=== PATIENT | male | born 1965 | race Caucasian/White ===

== ENCOUNTER → 2017-11-01 | Outpatient (CLI) | payer OTHER ==
--- NOTE | 2017-11-01 15:05 | NM ---
EXAMINATION TYPE: NM hepatobiliary w CCK DATE OF EXAM: 11/01/2017 COMPARISON: NONE HISTORY: Gastroesophageal reflux disease TECHNIQUE: After the intravenous administration of 5 mCi Tc 99m Mebrofenin hepatobiliary scintigraphy is performed. Immediate images post injection. FINDINGS: There is satisfactory initial accumulation of tracer by the liver. The gallbladder is visualized wit hin 24 minutes. The small bowel activity is noted within 6 minutes. At one hour CCK was administere d, patient was injected with 1.4 mcg of Kinevac, and gallbladder ejection fraction is calculated at 4 0 %, in the normal range. Therefore there is no scintigraphic evidence of cystic or common bile duct obstruction to suggest acute cholecystitis or gallbladder dyskinesia. IMPRESSION: Exam is within normal limits.
== END | disposition home or self-care (01) ==
LOC: RADNMMAIN 12:45
PROVIDERS: ATTEND Surgery
DX: K27.9 Peptic ulcer, site unspecified, unspecified as acute or chronic, without hemorrhage or perforation (principal)
CPT/HCPCS: 78227; A9537; J2805

== ENCOUNTER 2017-11-07 09:18 | Day surgery (SDC) | payer OTHER ==
[2017-11-04 15:33] VITALS: BMI 23.0
[~2017-11-07 09:18] MED LIST: LACTATED RINGERS 1,000 ML IV SCH
[2017-11-07 09:41] VITALS: RESP 16; TEMP 97.3
[2017-11-07] MEDS ORDERED: PROPOFOL 10 MG/ML 20 ML VIAL IV ONE (09:59)
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
--- NOTE | 2017-11-07 10:34 | P.OP ---
Date of Procedure: 11/07/17 Preoperative Diagnosis: GERD Screening colonoscopy Postoperative Diagnosis: Antral gastritis Hiatal hernia Mild esophagitis Diverticulosis Hemorrhoids Procedure(s) Performed: EGD Colonoscopy Anesthesia: MAC Surgeon: Pablito Petty Pathology: none sent Condition: stable Disposition: PACU Description of Procedure: Patient's placed on the endoscopy table in the lateral position. He received IV sedation. The gastroscope placed oropharynx passed in the esophagus stomach. Scope was then placed through the pylorus. The first and second portion of the duodenum appeared normal. Scope was then brought back and the antrum this. Mildly inflamed. A biopsies performed. The scope was then retroflexed and remainder stomach appeared normal. There was a small hiatal hernia. The GE junction was at 38 cm. The distal esophagus appeared mildly inflamed a biopsies performed. The scope was withdrawn for patient. Digital rectal exam was performed which revealed a few external hemorrhoids. The prostate was symmetric without nodules. Possible colonoscope was then placed patient anus passed throughout the entire colon. The ileocecal valve was visualized. The cecum, ascending and transverse colon appeared normal. In the descending and sigmoid colon there is mild diverticular changes. Scope was then brought back the rectum and this appeared normal. Scope was withdrawn for patient.
[2017-11-07 10:59] VITALS: BP 138/85; PULSE 72
== END 2017-11-07 11:47 | disposition home or self-care (01) ==
LOC: ORWHC2ENDO 09:18
PROVIDERS: ATTEND Surgery
DX: Z12.11 Encounter for screening for malignant neoplasm of colon (principal); K21.0 Gastro-esophageal reflux disease with esophagitis; K44.9 Diaphragmatic hernia without obstruction or gangrene; K31.9 Disease of stomach and duodenum, unspecified; K29.60 Other gastritis without bleeding; K57.30 Diverticulosis of large intestine without perforation or abscess without bleeding; Z87.11 Personal history of peptic ulcer disease; K64.4 Residual hemorrhoidal skin tags; E78.5 Hyperlipidemia, unspecified; F17.200 Nicotine dependence, unspecified, uncomplicated; M19.90 Unspecified osteoarthritis, unspecified site; Z79.899 Other long term (current) drug therapy
CPT/HCPCS: 88305; 43239; J2704; G0121; 45378

== ENCOUNTER → 2017-12-28 | Outpatient (CLI) | payer OTHER ==
[2017-12-28 11:28] LABS: Basophils # (A) 0.1 k/uL (0-0.2); Basophils % (A) 1 %; Eosinophils # (A) 0.2 k/uL (0-0.7); Eosinophils % (A) 2 %; HCT 49.8 % (39.0-53.0); HGB 16.5 gm/dL (13.0-17.5); Lymphocytes # (A) 2.3 k/uL (1.0-4.8); Lymphocytes % (A) 23 %; MCH 30.7 pg (25.0-35.0); MCHC 33.2 g/dL (31.0-37.0); MCV 92.4 fL (80.0-100.0); Mean Platelet Volume 6.5; Monocytes # (A) 0.5 k/uL (0-1.0); Monocytes % (A) 5 %; Neutrophils # (A) 6.7 k/uL (1.3-7.7); Neutrophils % (A) 68 %; Platelet Count 347 k/uL (150-450); RBC 5.38 m/uL (4.30-5.90); RDW 12.8 % (11.5-15.5); WBC 9.9 k/uL (3.8-10.6)
== END | disposition home or self-care (01) ==
LOC: LABPAT 10:28
PROVIDERS: ATTEND Surgery
DX: Z01.812 Encounter for preprocedural laboratory examination (principal); K43.2 Incisional hernia without obstruction or gangrene; K43.9 Ventral hernia without obstruction or gangrene
CPT/HCPCS: 36415; 85025; 93005

== ENCOUNTER → 2018-04-02 | Outpatient (CLI) | payer OTHER ==
--- NOTE | 2018-04-02 09:26 | NM ---
EXAMINATION TYPE: NM hepatobiliary w EF DATE OF EXAM: 04/02/2018 COMPARISON: NONE HISTORY: k82.8 - Bilary Dyskinesia TECHNIQUE: After the intravenous administration of 5.16 mCi Tc 99m Mebrofenin hepatobiliary scintigra phy is performed. Immediate images post injection. FINDINGS: There is satisfactory initial accumulation of tracer by the liver. The gallbladder is visualized wit hin 14 minutes. The small bowel activity is noted within 40 minutes. At one hour 8 ounces of oral e nsure plus is given to mimic CCK and gallbladder ejection fraction is calculated at 86%. IMPRESSION: Elevated gallbladder ejection fraction which suggests hypercontractile state.
== END | disposition home or self-care (01) ==
LOC: RADNMMAIN 07:00
PROVIDERS: ATTEND Surgery
DX: K82.8 Other specified diseases of gallbladder (principal)
CPT/HCPCS: 78226; A9537

== ENCOUNTER → 2018-04-09 | Outpatient (CLI) | payer OTHER ==
--- NOTE | 2018-04-10 06:40 | CT ---
EXAMINATION TYPE: CT abdomen pelvis w con DATE OF EXAM: 04/09/2018 COMPARISON: 04/02/2018 HIDA scan HISTORY: Abdominal distention CT DLP: 424 mGycm Automated exposure control for dose reduction was used. TECHNIQUE: Helical acquisition of images was performed from the lung bases through the pelvis. CONTRAST: Performed with Oral Contrast and with IV Contrast, patient injected with 100 mL of Isovue 300. FINDINGS: LUNG BASES: Reticular opacity within the right lung base and honeycombing are seen raising suspicion for pulmonary fibrosis. Centrilobular emphysematous changes are also partially visualized and appear overall mild. LIVER/GB: The liver is enlarged extending beyond the iliac crest. Gallbladder is unremarkable on CT w ith hypercontractile ejection fraction noted on the prior exam. PANCREAS: No significant abnormality is seen. SPLEEN: No significant abnormality is seen. ADRENALS: No significant abnormality is seen. KIDNEYS: Kidneys enhance and excrete symmetrically without hydronephrosis. FREE AIR: No free air is visualized. ADENOPATHY: No greater than 1 cm short axis lymph node is appreciated within the abdomen or pelvis. REPRODUCTIVE ORGANS: Prostate gland is heterogenous containing central zone calcifications measuring 4.7 cm. URINARY BLADDER: Incompletely distended. OSSEOUS STRUCTURES: Mild multilevel degenerative changes of the spine are noted with minimal retroli sthesis of L5 on S1. BOWEL: No dilated large or small bowel is seen. There is slight thickening of the terminal ileum kenneth t may relate to peristalsis. Similarly prominent haustra are seen within the ascending colon and hepa tic flexure that may relate to colonic spasm. No small bowel abnormality is seen. OTHER: Moderate calcific atheromatous changes seen of the abdominal aorta and its branches. There is a small hiatal hernia present. IMPRESSION: 1. GALLBLADDER APPEARS UNREMARKABLE ON CT ALTHOUGH AN ABNORMAL EJECTION FRACTION WAS IDENTIFIED ON TH E PRIOR EXAM OF 518 COMPATIBLE WITH BILIARY HYPERKINESIA. 2. PROMINENT HAUSTRA WITHIN THE ASCENDING COLON AND HEPATIC FLEXURE WELL THICKENING OF THE TERM INAL ILEUM. FINDINGS COULD SIMPLY RELATE TO PERISTALSIS AND COLONIC SPASM. COLONOSCOPY COULD BE CONSI DERED IF NOT RECENTLY PERFORMED WITH ATTENTION TO THESE REGIONS. 3. RETICULAR OPACITY IN THE RIGHT LUNG BASE SUGGESTING A DEGREE OF EARLY PULMONARY FIBROSIS WITH MILD EMPHYSEMATOUS CHANGES ALSO SEEN. 4. HEPATOMEGALY.
== END | disposition home or self-care (01) ==
LOC: RADCTMAIN 11:18
PROVIDERS: ATTEND Surgery
DX: K63.89 Other specified diseases of intestine (principal); R16.0 Hepatomegaly, not elsewhere classified; R14.0 Abdominal distension (gaseous)
CPT/HCPCS: 74177; Q9967

== ENCOUNTER 2018-04-17 09:40 | Day surgery (SDC) | payer OTHER ==
[2018-04-14 15:16] VITALS: BMI 22.4
[~2018-04-17 09:40] MED LIST changes: +DEXAMETHASONE SOD PHOSPHATE 10 MG/ML 1 ML VIAL IV ONE; +HEPARIN SODIUM,PORCINE 5,000 UNIT/ML 1 ML VIAL SQ ONE; +LIDOCAINE 1% 20 ML VIAL (10MG/ML) FOR IV START INTRADERMA PRN; +MIDAZOLAM (PF) 2 MG/2 ML VIAL IV PRN; +ONDANSETRON 4 MG/2 ML VIAL IVP ONE; +ceFAZolin IN SWFI 2 GM/20 ML SYRINGE IVP ONE; +fentaNYL (PF) 50 MCG/ML 2 ML AMP IV PRN
[2018-04-17 10:58] VITALS: RESP 16
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
[2018-04-17] MEDS ORDERED: PROPOFOL 10 MG/ML 20 ML VIAL IV ONE (11:44)
[2018-04-17] MEDS ORDERED: KETOROLAC 30 MG/ML 1 ML VIAL ONE (11:44)
[2018-04-17] MEDS ORDERED: NEOSTIGMINE 1 MG/ML 10 ML VIAL ONE (11:44)
[2018-04-17] MEDS ORDERED: MIDAZOLAM 2 MG/2 ML VIAL ONE (11:44)
[2018-04-17] MEDS ORDERED: SUCCINYLCHOLINE CHLORIDE 100 MG/5 ML SYR IV ONE (11:44)
[2018-04-17] MEDS ORDERED: MORPHINE SULFATE 10 MG/ML SYRINGE ONE (11:44)
[2018-04-17] MEDS ORDERED: GLYCOPYRROLATE 0.2 MG/ML 2 ML VIAL ONE (11:44)
[2018-04-17] MEDS ORDERED: fentaNYL (PF) 50 MCG/ML 2 ML AMP ONE (11:44)
[2018-04-17] MEDS ORDERED: ROCURONIUM BROMIDE 10 MG/ML 10 ML VIAL IV ONE (11:44)
[2018-04-17] MEDS ORDERED: LIDOCAINE 1% INJ 10MG/ML (20 ML MDV) ONE (11:44)
[2018-04-17] MEDS ORDERED: ceFAZolin IN SWFI 2 GM/20 ML SYRINGE IVP ONE (11:50)
[2018-04-17] MEDS ORDERED: BUPIVACAIN-EPI 0.25%-1:200,000 30 ML VIAL SQ ONE (12:04)
--- NOTE | 2018-04-17 12:42 | P.OP ---
Date of Procedure: 04/17/18 Preoperative Diagnosis: Cholecystitis Postoperative Diagnosis: Extensive adhesions Cholecystitis Procedure(s) Performed: Laparoscopic cholecystectomy Anesthesia: SUMMER Surgeon: Pablito Petty Estimated Blood Loss (ml): 5 Pathology: other (Gallbladder) Condition: stable Disposition: PACU Description of Procedure: The patient was placed on the operating table. The patient received a general endotracheal tube anesthesia. The patients abdomen was prepped and draped in the usual sterile fashion. The patient had a previous umbilical hernia repair. A 5 mm operative trochars placed in the right lateral abdominal wall. This was placed under direct visualization. Thereadhesions in this area. The abdomen was inspected. Next a another 5 mm trochars placed the left lateral upper quadrant and lower quadrant. Using the Harmonic scissors the mental adhesions were lysed. Approximately 15 minutes operative time used to lyse adhesions. Next, a fibrillar trocar is placed in the umbilicus. Following this the laparoscope was placed in the peritoneal cavity. The patient was placed in the head-up, right side up position and then a 5 mm trocar was placed in the right lateral and right subcostal position under direct visualization. A 8 mm trocar was placed in the epigastric position. The gallbladder was grasped in the fundus and infundibulum. Traction on the gallbladder was placed in the lateral and the cephalad positions. The triangle of Calot was visualized.. The cystic duct was bluntly dissected until the union of the cystic duct and common bile duct was seen. The cystic duct was then divided and sealed with the Harmonic scissors. A PDS Endoloop was then placed throughout the cystic duct stump. The cystic artery divided and sealed with the Harmonic scissors. The gallbladder was then removed from the liver bed using Harmonic scissors. The gallbladder was then extracted through the epigastric port site. Operative field was checked for any bleeding spots and Harmonic scissors was used to coagulate the liver bed. The abdomen was irrigated. The trocars were removed. The skin was closed using interrupted 3- 0 Vicryl suture. Dermabond dressing were applied. The patient tolerated the procedure well.
[2018-04-17] MEDS ORDERED: LACTATED RINGERS 1,000 ML IV ONE (12:43)
[2018-04-17 12:49] VITALS: TEMP 97.8
[2018-04-17 13:57] VITALS: BP 143/81; PULSE 75
== END 2018-04-17 14:12 | disposition home or self-care (01) ==
LOC: OR 09:40
PROVIDERS: ATTEND Surgery
DX: K80.10 Calculus of gallbladder with chronic cholecystitis without obstruction (principal); K66.0 Peritoneal adhesions (postprocedural) (postinfection); M19.90 Unspecified osteoarthritis, unspecified site; K21.9 Gastro-esophageal reflux disease without esophagitis; J44.9 Chronic obstructive pulmonary disease, unspecified; E78.5 Hyperlipidemia, unspecified; F17.200 Nicotine dependence, unspecified, uncomplicated; G47.00 Insomnia, unspecified; Z87.11 Personal history of peptic ulcer disease; Z79.1 Long term (current) use of non-steroidal anti-inflammatories (NSAID); Z79.899 Other long term (current) drug therapy
CPT/HCPCS: 88304; 47562; 49329; J2250; J1644; J1100; J2710; J2270; J2405; J2001; J3010; J1885; J0330; J2704; J0690

== ENCOUNTER 2019-01-20 13:51 | Emergency (ER) | payer OTHER ==
[2019-01-20 14:21] VITALS: BP 156/111; PULSE 87; RESP 18; TEMP 98.7
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
[2019-01-20] MEDS ORDERED: LORazepam 2 MG/ML INJ IV STA (15:02)
[2019-01-20] MEDS ORDERED: MORPHINE SULFATE 2 MG/ML SYRINGE IVP STA (15:02)
[2019-01-20] MEDS ORDERED: SODIUM CHLORIDE 0.9% 500 ML 500 ML IV ONE (15:02)
[2019-01-20 15:05] LABS: Basophils # (A) 0.2 k/uL (0-0.2); Basophils % (A) 2 %; Eosinophils # (A) 0.1 k/uL (0-0.7); Eosinophils % (A) 1 %; HCT 52.3 % (39.0-53.0); HGB 17.8 gm/dL (13.0-17.5); Lymphocytes # (A) 1.8 k/uL (1.0-4.8); Lymphocytes % (A) 21 %; MCV 94.2 fL (80.0-100.0); Mean Platelet Volume 6.4; Monocytes # (A) 0.5 k/uL (0-1.0); Monocytes % (A) 5 %; Neutrophils % (A) 69 %; Platelet Count 344 k/uL (150-450); RBC 5.55 m/uL (4.30-5.90); RDW 13.2 % (11.5-15.5); WBC 8.8 k/uL (3.8-10.6)
[2019-01-20 15:07] LABS: Appearance,Urine Clear (Clear); Bilirubin,Urine Negative (Negative); Blood,Urine Trace (Negative); Color,Urine Yellow; Glucose,Urine (UA) Negative (Negative); Ketones,Urine Trace (Negative); Leukocyte Esterase,Urine Negative (Negative); Mucus,Urine Many /hpf; Nitrite,Urine Negative (Negative); PH, Urine 5.5 (5.0-8.0); Protein,Urine 1+ (Negative); RBC,Urine <1 /hpf (0-5); Specific Gravity,Urine 1.022 (1.001-1.035); WBC,Urine 1 /hpf (0-5)
[2019-01-20 15:13] LABS: ALT 33 U/L (21-72); AST 33 U/L (17-59); African American GFR (CKD) >90 (>60 ml/min/1.73 sqM); Albumin 4.6 g/dL (3.5-5.0); Alkaline Phosphatase 99 U/L (38-126); Amylase 45 U/L (30-110); Anion Gap 11 mmol/L; Blood Urea Nitrogen 8 mg/dL (9-20); Calcium 10.1 mg/dL (8.4-10.2); Carbon Dioxide 27 mmol/L (22-30); Chloride 100 mmol/L (98-107); Glucose 130 mg/dL (74-99); Sodium 138 mmol/L (137-145); Total Bilirubin 0.8 mg/dL (0.2-1.3); Total Protein 7.9 g/dL (6.3-8.2)
--- NOTE | 2019-01-20 18:21 | CT ---
EXAMINATION TYPE: CT abdomen pelvis w con DATE OF EXAM: 01/20/2019 COMPARISON: CT 04/09/2018 HISTORY: Abdominal pain and bulge to left of umbilicus. CT DLP: 830.4 mGycm Automated exposure control for dose reduction was used. TECHNIQUE: Helical acquisition of images was performed from the lung bases through the pelvis. CONTRAST: Performed without Oral Contrast and with IV Contrast, patient injected with 100 mL of Isovu e 300. FINDINGS: LUNG BASES: No significant abnormality is appreciated. LIVER/GB: No significant abnormality is appreciated. PANCREAS: No significant abnormality is seen. SPLEEN: No significant abnormality is seen. ADRENALS: No significant abnormality is seen. KIDNEYS: No significant abnormality is seen. FREE AIR: No free air is visualized. RETROPERITONEAL ADENOPATHY: None visualized REPRODUCTIVE ORGANS: No significant abnormality is seen URINARY BLADDER: No significant abnormality is seen. PELVIC ADENOPATHY: None visualized. OSSEOUS STRUCTURES: No significant abnormality is seen. BOWEL: No definite acute process. However, there is indistinctness of the gastric antrum and duodena l cap which can correlate with a clinical diagnosis of peptic ulcer disease. VASCULAR STRUCTURES: No acute process. Nonaneurysmal scattered atherosclerotic calcifications are not ed throughout the abdomen and pelvis. OTHER: Examination of the umbilicus and the structures deep to the umbilicus are negative for acute p rocess. IMPRESSION: NO DEFINITE ACUTE PROCESS. However, there is indistinctness of the gastric antrum and duodenal cap wh ich can correlate with a clinical diagnosis of peptic ulcer disease.
[2019-01-20] MEDS ORDERED: PANTOPRAZOLE 40 MG/10 ML VIAL IVP STA (19:00)
== END 2019-01-20 19:07 | disposition home or self-care (01) ==
LOC: EC 13:51
DX: K27.9 Peptic ulcer, site unspecified, unspecified as acute or chronic, without hemorrhage or perforation (principal); Z63.5 Disruption of family by separation and divorce; F17.200 Nicotine dependence, unspecified, uncomplicated; Z85.828 Personal history of other malignant neoplasm of skin; Z87.19 Personal history of other diseases of the digestive system; Z90.49 Acquired absence of other specified parts of digestive tract; Z98.890 Other specified postprocedural states; Z80.0 Family history of malignant neoplasm of digestive organs
CPT/HCPCS: 99284; 96374; 96375 ×2; 36415; 80053; 82150; 83690; 85025; 81001; 74177; J2060; J2270; C9113; Q9967

== ENCOUNTER 2019-02-10 07:46 | Day surgery (SDC) | payer OTHER ==
[2019-02-05 13:30] VITALS: BMI 22.2
[~2019-02-10 07:46] MED LIST changes: -DEXAMETHASONE SOD PHOSPHATE 10 MG/ML 1 ML VIAL IV ONE; -HEPARIN SODIUM,PORCINE 5,000 UNIT/ML 1 ML VIAL SQ ONE; -LIDOCAINE 1% 20 ML VIAL (10MG/ML) FOR IV START INTRADERMA PRN; -MIDAZOLAM (PF) 2 MG/2 ML VIAL IV PRN; -ONDANSETRON 4 MG/2 ML VIAL IVP ONE; -ceFAZolin IN SWFI 2 GM/20 ML SYRINGE IVP ONE; -fentaNYL (PF) 50 MCG/ML 2 ML AMP IV PRN
[2019-02-10 08:06] VITALS: TEMP 97.4
[2019-02-10] MEDS ORDERED: LIDOCAINE 1% 20 ML VIAL (10MG/ML) FOR IV START INTRADERMA ONE (08:10)
[2019-02-10] MEDS ORDERED: LIDOCAINE 1% INJ 10MG/ML (20 ML MDV) ONE (08:57)
[2019-02-10] MEDS ORDERED: PROPOFOL 10 MG/ML 20 ML VIAL IV ONE (08:57)
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
--- NOTE | 2019-02-10 09:13 | P.OP ---
Date of Procedure: 02/10/19 Preoperative Diagnosis: Peptic ulcer disease Postoperative Diagnosis: Antral gastritis Mild duodenitis Hiatal hernia Mild esophagitis Procedure(s) Performed: EGD Anesthesia: MAC Surgeon: Pablito Petty Pathology: other (Antrum, esophagus, duodenum) Condition: stable Disposition: PACU Description of Procedure: The patient's placed on the endoscopy table in the lateral position. He received IV sedation. The gastric scope placed oropharynx and passed in the esophagus and into the stomach. Scope then placed through the pylorus. The first and second portion of the duodenum appeared minimally inflamed a biopsies performed. Scope was then brought back the antrum this was mildly inflamed. A biopsies performed. Scope was then retroflexed and the remainder some appeared normal. There was a moderate size hiatal hernia. The GE junction was at 38 cm. The distal esophagus appeared inflamed a biopsies performed. The proximal esophagus appeared normal. Scope was withdrawn for patient.
[2019-02-10 09:21] VITALS: RESP 18
[2019-02-10 09:41] VITALS: BP 137/92; PULSE 62
== END 2019-02-10 10:07 | disposition home or self-care (01) ==
LOC: ORWHC2ENDO 07:46
PROVIDERS: ATTEND Surgery
DX: K29.80 Duodenitis without bleeding (principal); K29.50 Unspecified chronic gastritis without bleeding; K44.9 Diaphragmatic hernia without obstruction or gangrene; K21.0 Gastro-esophageal reflux disease with esophagitis; Z87.11 Personal history of peptic ulcer disease; J44.9 Chronic obstructive pulmonary disease, unspecified; E78.5 Hyperlipidemia, unspecified; M19.90 Unspecified osteoarthritis, unspecified site; G47.00 Insomnia, unspecified; K64.9 Unspecified hemorrhoids; C44.91 Basal cell carcinoma of skin, unspecified; F17.210 Nicotine dependence, cigarettes, uncomplicated; Z80.0 Family history of malignant neoplasm of digestive organs; Z79.891 Long term (current) use of opiate analgesic; Z79.899 Other long term (current) drug therapy
CPT/HCPCS: 88305; 43239; J2001; J2704

== ENCOUNTER 2019-02-26 09:24 | Day surgery (SDC) | payer OTHER ==
[2019-02-24 09:52] VITALS: BMI 21.2
[~2019-02-26 09:24] MED LIST changes: +DEXAMETHASONE SOD PHOSPHATE 10 MG/ML 1 ML VIAL IV ONE; +HEPARIN SODIUM,PORCINE 5,000 UNIT/ML 1 ML VIAL SQ ONE; +HYDROmorphone 0.5 MG/0.5 ML SYRINGE IVP PRN; +MIDAZOLAM 2 MG/2 ML VIAL IV PRN; +ONDANSETRON 4 MG/2 ML VIAL IVP ONE; +Pre Op ABX Message 1 EACH MISC MISCELLANE ONE
[2019-02-26 09:49] VITALS: TEMP 97.7
[2019-02-26] MEDS ORDERED: LIDOCAINE 1% 20 ML VIAL (10MG/ML) FOR IV START INTRADERMA ONE (10:00)
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
[2019-02-26] MEDS ORDERED: BUPIVACAINE (PF) 0.25% 30 ML VIAL SQ ONE ×5 (10:18→10:46)
[2019-02-26] MEDS ORDERED: ROCURONIUM BROMIDE 10 MG/ML 10 ML VIAL IV ONE (10:21)
[2019-02-26] MEDS ORDERED: KETAMINE 10 MG/ML 20 ML VIAL ONE (10:21)
[2019-02-26] MEDS ORDERED: PROPOFOL 10 MG/ML 20 ML VIAL IV ONE (10:21)
[2019-02-26] MEDS ORDERED: MIDAZOLAM 2 MG/2 ML VIAL ONE (10:21)
[2019-02-26] MEDS ORDERED: KETOROLAC 30 MG/ML 1 ML VIAL ONE (10:21)
[2019-02-26] MEDS ORDERED: diphenhydrAMINE 50 MG/ML 1 ML VIAL ONE (10:21)
[2019-02-26] MEDS ORDERED: GLYCOPYRROLATE 0.2 MG/ML 2 ML VIAL ONE (10:21)
[2019-02-26] MEDS ORDERED: NEOSTIGMINE 1 MG/ML 10 ML VIAL ONE (10:21)
[2019-02-26] MEDS ORDERED: fentaNYL (PF) 50 MCG/ML 2 ML AMP ONE (10:21)
[2019-02-26] MEDS ORDERED: SUCCINYLCHOLINE CHLORIDE 100 MG/5 ML SYR IV ONE (10:21)
[2019-02-26] MEDS ORDERED: LIDOCAINE 1% INJ 10MG/ML (20 ML MDV) ONE (10:21)
[2019-02-26] MEDS ORDERED: SODIUM CHLORIDE 0.9% 100 ML with ceFAZolin 2,000 MG IV ONE ×2 (10:44)
[2019-02-26] MEDS ORDERED: LIDOCAINE 0.5%-EPI 1:200,000 50 ML VIAL SQ ONE ×2 (10:53)
--- NOTE | 2019-02-26 11:25 | P.OP ---
Date of Procedure: 02/26/19 Preoperative Diagnosis: Adhesions Postoperative Diagnosis: Adhesions, extensive Chronic appendicitis Procedure(s) Performed: Laparoscopic lysis of extensive adhesions Laparoscopic appendectomy Anesthesia: SUMMER Surgeon: Pablito Petty Estimated Blood Loss (ml): 5 Pathology: other (Appendix) Condition: stable Disposition: PACU Description of Procedure: The patient's placed on the operating table in the supine position. He received general anesthesia. His abdomen was prepped and draped in usual sterile fashion. The skin incision sites were anesthetized 1% local Xylocaine. Using a 5 mm optical trocar the pleural cavity was entered in the left upper quadrant. After adequate insufflation a 10 mm trochars placed in the left lateral position and another 5 mm trochars placed in the left lower quadrant. The patient had adhesions to the midline from his previous ventral hernia. The adhesions were extensive these were lysed using the Harmonic scissors. The appendix was visualized. There was some scarring of the cecum and appendix. The adhesions were lysed. The pedis appeared to be moderately dilated. It was decided to perform an laparoscopic appendectomy. The mesial appendix was divided with the Harmonic scissors. The base of the appendix was then ligated using the Endoloop. The appendix was then divided using the Harmonic scissors. The specimen was sent to a 10 mm Endo Catch bag and brought out through the 10 mm trocar site. The abdomen was irrigated there is no bleeding seen. The trochars withdrawn. The skin was closed interrupted 3-0 Monocryl suture. Dermabond dressings was applied.
[2019-02-26] MEDS ORDERED: LACTATED RINGERS 1,000 ML IV ONE (12:06)
[2019-02-26 15:17] VITALS: BP 110/57; PULSE 69; RESP 16
== END 2019-02-26 13:05 | disposition home or self-care (01) ==
LOC: OR 09:24
PROVIDERS: ATTEND Surgery
DX: K66.0 Peritoneal adhesions (postprocedural) (postinfection) (principal); K36 Other appendicitis; C44.91 Basal cell carcinoma of skin, unspecified; J44.9 Chronic obstructive pulmonary disease, unspecified; K21.9 Gastro-esophageal reflux disease without esophagitis; E78.5 Hyperlipidemia, unspecified; M19.90 Unspecified osteoarthritis, unspecified site; F43.8 Other reactions to severe stress; G47.00 Insomnia, unspecified; F39 Unspecified mood [affective] disorder; K08.409 Partial loss of teeth, unspecified cause, unspecified class; I45.4 Nonspecific intraventricular block; I45.10 Unspecified right bundle-branch block; F17.210 Nicotine dependence, cigarettes, uncomplicated; Z87.81 Personal history of (healed) traumatic fracture; Z79.899 Other long term (current) drug therapy; Z87.19 Personal history of other diseases of the digestive system; Z87.09 Personal history of other diseases of the respiratory system; Z87.11 Personal history of peptic ulcer disease; Z79.891 Long term (current) use of opiate analgesic; Z98.890 Other specified postprocedural states; Z85.828 Personal history of other malignant neoplasm of skin; Z80.0 Family history of malignant neoplasm of digestive organs
CPT/HCPCS: 44970; 88304; J2250; J1200; J1644; J1100; J2710; J2405; J0690; J2001; J3010; J1885; J0330; J2704; 88302

== ENCOUNTER 2019-03-02 09:41 | Observation (INO) | payer OTHER ==
[2019-03-02] MEDS ORDERED: NITROGLYCERIN SL TABS 0.4 MG TAB SUBLINGUAL STA (10:33)
[2019-03-02] MEDS ORDERED: MORPHINE SULFATE 4 MG/ML SYRINGE IV STA (10:33)
[2019-03-02] MEDS ORDERED: ASPIRIN 81 MG PO STA (10:33)
--- NOTE | 2019-03-02 10:50 | XR ---
EXAMINATION TYPE: XR chest 2V DATE OF EXAM: 03/02/2019 COMPARISON: None HISTORY: 53-year-old male with chest pain TECHNIQUE: PA and lateral views FINDINGS: Heart normal size. Aorta and pulmonary vasculature within normal limits. Diffuse interstitial promine nce and hyperinflation with flattening of the hemidiaphragms. No consolidation or pleural effusion. IMPRESSION: COPD and chronic appearing parenchymal changes. No acute process seen.
[2019-03-02 10:56] LABS: Basophils % (A) 1 %; Eosinophils # (A) 0.2 k/uL (0-0.7); Eosinophils % (A) 2 %; HGB 18.2 gm/dL (13.0-17.5); Hypochromasia Slight; Lymphocytes # (A) 0.9 k/uL (1.0-4.8); Lymphocytes % (A) 12 %; MCH 31.7 pg (25.0-35.0); MCHC 32.4 g/dL (31.0-37.0); MCV 97.8 fL (80.0-100.0); Monocytes # (A) 0.3 k/uL (0-1.0); Monocytes % (A) 5 %; Neutrophils % (A) 79 %; Platelet Count 292 k/uL (150-450); RBC 5.73 m/uL (4.30-5.90); RDW 12.6 % (11.5-15.5); WBC 7.6 k/uL (3.8-10.6)
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
[2019-03-02 11:00] LABS: ALT 36 U/L (21-72); AST 45 U/L (17-59); African American GFR (CKD) >90 (>60 ml/min/1.73 sqM); Albumin 3.8 g/dL (3.5-5.0); Alkaline Phosphatase 91 U/L (38-126); Anion Gap 8 mmol/L; Blood Urea Nitrogen 7 mg/dL (9-20); Calcium 9.3 mg/dL (8.4-10.2); Carbon Dioxide 28 mmol/L (22-30); Chloride 103 mmol/L (98-107); Glucose 133 mg/dL (74-99); Magnesium 1.8 mg/dL (1.6-2.3); Potassium 4.2 mmol/L (3.5-5.1); Sodium 139 mmol/L (137-145); Total Bilirubin 0.9 mg/dL (0.2-1.3); Total Protein 6.9 g/dL (6.3-8.2)
[2019-03-02 11:10] LABS: Prothrombin Time 10.8 sec (9.0-12.0)
[2019-03-02 11:28] LABS: D-Dimer 1.38 mg/L FEU (<0.60)
--- NOTE | 2019-03-02 12:35 | CT ---
EXAMINATION TYPE: CT chest angio for PE DATE OF EXAM: 03/02/2019 COMPARISON: Radiograph same date HISTORY: 53-year-old male with elevated d-dimer, chest pain, and shortness of breath TECHNIQUE: Contiguous axial scanning of the chest performed with IV Contrast, patient injected with 1 00 mL of Isovue 370. Coronal/sagittal MIP reconstructions performed. CT DLP: 323.6 mGycm Automated exposure control for dose reduction was used. FINDINGS: Heart normal size without pericardial effusion. Mildly ectatic ascending aorta 3.6 cm with conventional arch vessel branching anatomy. Prominent but nonenlarged 7 mm AP window lymph node. No thoracic lymphadenopathy by CT size criteria. Borderline to mildly enlarged caliber to the main right and left pulmonary arteries that is 2.9 and 2 .6 cm, respectively, suggesting underlying pulmonary arterial hypertension. Satisfactory opacificatio n of the pulmonary total system. Breathing motion artifacts in the lower lungs limiting assessment of the basilar segmental and more distal arterial branches no pulmonary embolus. Dependent hazy density along the posterior lower lobes likely atelectasis. Mild diffuse bronchial wal l thickening. Moderate centrilobular and paraseptal emphysema is demonstrated. Otherwise, no consolidation or pleural effusion. Incidentally, there is mild to moderate free air along the epigastric region. Hypodensity along the a nterior left liver lobe measures 1.8 cm, probable cyst. Bones: No osseous destructive process. IMPRESSION: 1. NO DEFINITE PULMONARY EMBOLUS. THE SEGMENTAL AND MORE DISTAL ARTERIAL BRANCHES OF THE LOWER LUNGS ARE LIMITED DUE TO BREATHING MOTION. 2. COPD WITH MODERATE EMPHYSEMA AND PULMONARY ARTERIAL HYPERTENSION. 3. THERE IS MILD TO MODERATE FREE AIR ALONG THE EPIGASTRIC REGION. FURTHER CLINICAL CORRELATION RECOM MENDED TO IF THIS IS AN APPROPRIATE AMOUNT OF POSTSURGICAL FREE AIR GIVEN ADDITIONAL HISTORY OF LA PAROSCOPIC CHOLECYSTECTOMY 5 DAYS AGO. Findings called to [facility] in the ER at 12:30 PM.
[2019-03-02] MEDS ORDERED: NITROGLYCERIN SL TABS 0.4 MG TAB SUBLINGUAL PRN (12:46)
[2019-03-02] MEDS ORDERED: clonazePAM 1 MG TAB PO PRN (14:56)
[2019-03-02] MEDS ORDERED: oxyCODONE-APAP 10-325MG 1 EACH TAB PO PRN (14:56)
[2019-03-02] MEDS ORDERED: NON FORMULARY DRUG (Omeprazole 20 MG) PO SCH (15:00)
[2019-03-02] MEDS: PANTOPRAZOLE 40 MG TABLET PO SCH (16:06)
[2019-03-02] MEDS: DICYCLOMINE 20 MG TAB PO SCH ×2 (16:06→20:30)
[2019-03-02] MEDS ORDERED: methylPREDNISolone SOD SUCCI 125 MG/2 ML VIAL IV STA (16:33)
[2019-03-02] MEDS: NICOTINE 14MG/24HR PATCH TRANSDERM SCH (16:42)
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
[2019-03-02] MEDS: ENOXAPARIN 40 MG/0.4 ML SYRINGE SQ SCH (17:23)
[2019-03-02] MEDS: IPRATROPIUM-ALBUTEROL 3 ML NEB INHALATION SCH (20:25)
[2019-03-02 20:52] LABS: Glucose,Whole Blood 174 mg/dL (75-99)
[2019-03-02] MEDS: INSULIN ASPART (NovoLOG) 100 UNIT/ML VIAL SQ SCH (20:56)
[2019-03-02] MEDS ORDERED: traZODone HCL 50 MG TAB PO SCH (21:00)
--- NOTE | 2019-03-02 22:15 | CONS ---
CONSULTATION CHIEF COMPLAINT: Chest pain. This is a 53-year-old gentleman with a recent history of laparoscopic lysis of extensive adhesions on February 26, who presented to hospital complaining of chest pain. It is sharp, precordial, unrelated to exertion and associated with diaphoresis. There is no definite radiation to neck, arm or back. An EKG did not reveal acute ischemic changes and cardiac enzymes have been negative. We have been consulted because of chest pain. There is no prior history of coronary artery disease, congestive heart failure. There is no history of leg edema, PND or orthopnea. FAMILY HISTORY: Significant for premature coronary artery disease. SOCIAL HISTORY: Significant for smoking. There is no history of EtOH abuse or drug abuse. MEDICATIONS: Medications at home include Percocet, Klonopin, Protonix, Prilosec, Motrin, Bentyl, and trazodone. ALLERGIES: There are no known drug allergies. REVIEW OF SYSTEMS: HEENT is unremarkable. CARDIAC as described above. RESPIRATORY negative. GI: Significant for recent surgery. PSYCHOSOCIAL negative. ENDOCRINE negative. DERM negative. CONSTITUTIONAL negative. ONCOLOGICAL negative. The rest of the system review is not relevant. EXAM: Patient is comfortable at rest. Heart rate is 79 beats per minute. Blood pressure is 153/100, respiratory rate 18, O2 sat is 94% on room air. There is no jugular venous distention. Carotid upstroke is diminished. Chest exam reveals good air entry bilaterally. Heart exam reveals first and second heart sounds. No gallop. No murmur. Abdomen is status post surgery. Exam of extremities did not reveal any edema. Peripheral pulses are felt. ASSESSMENT: Chest pain, atypical, probably noncardiac. PLAN: I am going to get serial CPKs to rule out myocardial infarction. Once this is done, we will schedule him for a dobutamine echo. If this is abnormal, he will need further evaluation. If not, he can be discharged home. MMODL / IJN: [id number] /
[2019-03-02 22:31] VITALS: RESP 18
[2019-03-02] MEDS: methylPREDNISolone SOD SUCCI 40 MG/ML 1 ML VIAL IV SCH (23:01)
[2019-03-03] LABS: Cholesterol 148 mg/dL (<200); HDL Cholesterol 35 mg/dL (40-60); LDL Cholesterol,Calculated 88 mg/dL (0-99); Triglycerides 123 mg/dL (<150)
[2019-03-03] MEDS: IPRATROPIUM-ALBUTEROL 3 ML NEB INHALATION SCH ×5 (00:51→15:54)
[2019-03-03 06:28] LABS: Glucose,Whole Blood 147 mg/dL (75-99)
[2019-03-03] MEDS: PANTOPRAZOLE 40 MG TABLET PO SCH (06:36)
[2019-03-03] MEDS: INSULIN ASPART (NovoLOG) 100 UNIT/ML VIAL SQ SCH ×3 (06:36→15:54)
[2019-03-03] MEDS: NICOTINE 14MG/24HR PATCH TRANSDERM SCH (07:41)
[2019-03-03] MEDS: DICYCLOMINE 20 MG TAB PO SCH ×2 (07:44→15:54)
[2019-03-03] MEDS: methylPREDNISolone SOD SUCCI 40 MG/ML 1 ML VIAL IV SCH ×2 (07:44→15:54)
[2019-03-03] MEDS: ENOXAPARIN 40 MG/0.4 ML SYRINGE SQ SCH (07:44)
[2019-03-03] MEDS ORDERED: ASPIRIN 325 MG TAB PO SCH (09:00)
[2019-03-03] MEDS ORDERED: DOBUTamine DRIP for NUC MED 500 MG in DEXTROSE/WATER 1 250ML.BAG IV ONE (09:00)
--- NOTE | 2019-03-03 10:27 | ECHOF ---
Referral Reason:chest pain MEASUREMENTS -------- HEIGHT: 177.8 cm WEIGHT: 64.4 kg BP: 153/100 RVIDd: 3.1 cm (< 3.3) IVSd: 1.1 cm (0.6 - 1.1) LVIDd: 4.4 cm (3.9 - 5.3) LVPWd: 1.1 cm (0.6 - 1.1) IVSs: 1.8 cm LVIDs: 3.0 cm LVPWs: 1.6 cm LA Diam: 3.3 cm (2.7 - 3.8) Ao Diam: 3.4 cm (2.0 - 3.7) AV Cusp: 2.3 cm (1.5 - 2.6) MV EXCURSION: 24.078 mm (> 18.000) MV EF SLOPE: 120 mm/s (70 - 150) EPSS: 0.9 cm MV E Aaron: 0.58 m/s MV DecT: 247 ms MV A Aaron: 0.64 m/s MV E/A Ratio: 0.90 FINDINGS -------- Sinus rhythm. This was a technically adequate study. The left ventricular size is normal. There is borderline concentric left ventricular hypertrophy. Overall left ventricular systolic function is normal with, an EF between 60 - 65 %. The right ventricle is normal in size and function. The left atrial size is normal. The right atrium is normal in size. Interatrial and interventricular septum intact. The aortic valve is trileaflet and appears structurally normal. The mitral valve is normal. The tricuspid valve appears structurally normal. The pulmonic valve was not well visualized. The aortic root size is normal. IVC Not well visulized. There is no pericardial effusion. CONCLUSIONS -------- 1. Sinus rhythm. 2. This was a technically adequate study. 3. The left ventricular size is normal. 4. There is borderline concentric left ventricular hypertrophy. 5. Overall left ventricular systolic function is normal with, an EF between 60 - 65 %. 6. The right ventricle is normal in size and function. 7. The left atrial size is normal. 8. The right atrium is normal in size. 9. Interatrial and interventricular septum intact. 10. The aortic valve is trileaflet and appears structurally normal. 11. The mitral valve is normal. 12. The tricuspid valve appears structurally normal. 13. The pulmonic valve was not well visualized. 14. The aortic root size is normal. 15. IVC Not well visulized. 16. There is no pericardial effusion. RN ANTE PARTUM: Irene Frank RDCS
[2019-03-03 10:58] VITALS: BP 133/87; PULSE 90; TEMP 97.1
[2019-03-03] MEDS ORDERED: AMINOPHYLLINE 500 MG/20 ML VIAL IV PRN (11:27)
[2019-03-03] MEDS ORDERED: CAFFEINE CITRATE 60 MG/3 ML VIAL IV PRN (11:27)
[2019-03-03] MEDS ORDERED: DIPYRIDAMOLE IV ONE (11:45)
[2019-03-03] MEDS ORDERED: SODIUM CHLORIDE 0.9% IV ONE (11:45)
--- NOTE | 2019-03-03 13:59 | NM ---
EXAMINATION TYPE: NM stress persantine cardiolit DATE OF EXAM: 03/03/2019 COMPARISON: CTA chest from yesterday. HISTORY: Chest pain. Additional symptoms of palpitations and difficulty breathing. History of emphyse ma and tobacco use TECHNIQUE: After the intravenous administration of 9.7 mCi Tc 99m Sestamibi - Cardiolite resting SPE CT images acquired 45 minutes post injection. The patient received 36 mg Persantine, 25.1 mCi Tc 99m Sestamibi - Stress images obtained 30 minutes post injection FINDINGS: Review of stress and rest SPECT images demonstrates no distinct perfusion abnormality. Gated analysi s shows normal wall motion with an estimated left ventricular ejection fraction of 72 %. IMPRESSION: No scintigraphic evidence for reversible ischemia.
--- NOTE | 2019-03-03 14:10 | P.PN ---
Subjective Progress Note Date: 03/03/19 This is a 53-year-old gentleman with history of laparoscopic lysis of adhesions on February 26 presented to the hospital with symptoms of chest discomfort which she described as sharp pain. EKG did not reveal any acute changes and his enzymes were negative. Patient was recommended today to undergo dobutamine echocardiographic study, this apparently was changed to a Lexiscan stress test because of the poor images. He denies any further chest discomfort and hemodynamically he is stable. Blood pressure 132/80 with a heart rate of 90, 96% on room air. Objective - Vital Signs Vital signs: Vital Signs Temp 97.1 F L 03/03/19 10:56 Pulse 90 03/03/19 10:56 Resp 18 03/03/19 10:56 BP 133/87 03/03/19 10:56 Pulse Ox 96 03/03/19 10:56 Intake & Output 03/02/19 03/03/19 03/03/19 18:59 06:59 18:59 Intake Total 240 Balance 240 Weight 64.41 kg 63.5 kg 63.049 kg Intake: Oral 240 Other: Voiding Method Toilet Toilet # Voids 1 1 # Bowel Movements 1 - Exam PHYSICAL EXAMINATION: GENERAL: 43-year-old gentleman in no acute distress at the time of my examination HEENT: Head is atraumatic, normocephalic. Pupils equal, round. Sclera anicteric. Conjunctiva are clear. Mucous membranes of the mouth are moist. Neck is supple. There is no elevated jugular venous pressure. No carotid bruit is heard. HEART EXAMINATION: Heart S1, S2 normal. No murmur or gallop heard. CHEST EXAMINATION: Lungs are clear to auscultation and precussion. No chest wall tenderness is noted on palpation or with deep breathing. ABDOMEN: Soft, nontender. Bowel sounds are heard. No organomegaly noted. EXTREMITIES: 2+ peripheral pulses with no evidence of peripheral edema and no calf tenderness noted. NEUROLOGIC patient is awake, alert and oriented X3 . - Labs CBC & Chem 7: 03/02/19 10:30 03/02/19 10:30 Labs: Abnormal Lab Results - Last 24 Hours (Table) 03/02/19 03/02/19 03/03/19 Range/Units 10:30 20:50 06:27 POC Glucose (mg/dL) 174 H 147 H (75-99) mg/dL HDL Cholesterol 35 L (40-60) mg/dL Assessment and Plan Plan: Assessment and plan #1 atypical chest pain, patient scheduled today to undergo dobutamine echocardiographic study #2 recent laparoscopic lysis of adhesions on February 26 #3 family history of premature coronary artery disease Plan We will review echo and viewed a mean echo from today, if there is no evidence of reversible ischemia, from our perspective the patient may be able to be discharged home today and follow-up in the office post discharge. DNP note has been reviewed, I agree with a documented findings and plan of care. Patient was seen and examined.
--- NOTE | 2019-03-03 23:36 | P.DS ---
Providers Date of admission: 03/02/19 12:51 Expected date of discharge: 03/03/19 Attending physician: Ish Mancera Consults: 03/02/19 12:46 Consult Physician Urgent Consulting Provider: Ariel Madrid Consult Reason/Comments: chest pain Do you want consulting provider notified?: Yes [facility] Hospital Course: Chief Complaint: Chest pain Hospital course: This is a pleasant 53-year-old patient of Dr. Crandall. 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 Patient been on disability for many years following accident. Patient somewhat distraught from his social situation; his has asked him to leave the house. Patient's son is at home. Patient presents with pressure-like sensation across the chest , started yesterday. Ancef somebody sitting on the chest. Went down to the left arm Patient also been short of breath and wheezing. Patient is a smoker. Has been dizzy. Denies any prior cardiac history. Pulmonary embolism was ruled out in the ER with CT chest. Patient very anxious about his social situation. Has no place to go to. Patient is smoking up to a pack a day and also drinks up to 3 drinks a day. 5 days ago patient underwent lysis of adhesions by Dr. Petty laparoscopically including appendectomy. Treated for COPD exacerbation. Responded well to bronchodilators and steroids. Counseled about smoking. Also discussed with the sister the bedside. Nuclear stress test was negative for ischemia. Discussion and discharge planning more than 35 minutes Consultation: Dr. Padma Pinon from cardiology Physical examination: VITAL SIGNS: 97.1, 90, 18, 133/87, 96% room air GENERAL: Sitting at the edge of the bed, anxious. EYES: Blind left eye HEENT: External appearance of nose and ears normal, oral cavity grossly normal. NECK: JVD not raised; masses not palpable. HEART: First and second heart sounds are normal; no edema. LUNGS: Respiratory rate normal, decreased breath sounds ABDOMEN: Soft, nontender, liver spleen not palpable, no masses palpable. PSYCH: Alert and oriented x3; mood and affect anxious. INVESTIGATIONS, reviewed in the clinical context: White count 7.6 hemoglobin 18.2 potassium 4.2 creatinine 0.66 Troponin I less than 0.012 EKG tracing-shows P pulmonale, sinus rhythm Chest x-ray film personally reviewed by me-hyperinflation CT chest PE protocol-negative for PE. Emphysema present 2-D echo-EF 60-65% nuclear stress test negative for ischemia Assessment: -Acute COPD exacerbation in a current smoker -Anxiety from social stressors -GERD -Essential hypertension -Anterior chest wall., Possibly psychosomatic -Primary osteoarthritis -Left eye blind chronically -Chronic nicotine dependence Disposition: Home Patient Condition at Discharge: Stable Plan - Discharge Summary Discharge Rx Participant: No New Discharge Prescriptions: New Ipratropium [place] [Atrovent Hfa] 2 puff INHALATION QID #1 inhaler Nicotine 14Mg/24Hr Patch [Habitrol] 1 patch TRANSDERM DAILY #14 patch Albuterol Inhaler [Ventolin Hfa Inhaler] 1 - 2 puff INHALATION RT-Q6H PRN #1 inhaler PRN Reason: Wheezing predniSONE 10 mg PO DAILY #30 tab Continue oxyCODONE-APAP 10-325MG [Percocet 10-325 mg] 1 tab PO Q8HR PRN PRN Reason: Pain clonazePAM [KlonoPIN] 1 mg PO HS PRN PRN Reason: Insomnia traZODone HCL 50 mg PO HS Dicyclomine [Bentyl] 20 mg PO TID Omeprazole [PriLOSEC] 20 mg PO DAILY Ibuprofen [Motrin] 800 mg PO TID PRN PRN Reason: Pain Discontinued Pantoprazole Sodium [Protonix] 40 mg PO DAILY 7 Days #7 tablet.dr Discharge Medication List clonazePAM [KlonoPIN] 1 mg PO HS PRN 11/04/17 [History] oxyCODONE-APAP 10-325MG [Percocet 10-325 mg] 1 tab PO Q8HR PRN 11/04/17 [History] traZODone HCL 50 mg PO HS 02/05/19 [History] Dicyclomine [Bentyl] 20 mg PO TID 02/24/19 [History] Ibuprofen [Motrin] 800 mg PO TID PRN 03/02/19 [History] Omeprazole [PriLOSEC] 20 mg PO DAILY 03/02/19 [History] Albuterol Inhaler [Ventolin Hfa Inhaler] 1 - 2 puff INHALATION RT-Q6H PRN #1 inhaler 03/03/19 [Rx] Ipratropium [place] [Atrovent Hfa] 2 puff INHALATION QID #1 inhaler 03/03/19 [Rx] Nicotine 14Mg/24Hr Patch [Habitrol] 1 patch TRANSDERM DAILY #14 patch 03/03/19 [Rx] predniSONE 10 mg PO DAILY #30 tab 03/03/19 [Rx] Follow up Appointment(s)/Referral(s): dr LIZZY [Other] - 1 Week Neil Morales MD [Primary Care Provider] - 03/19/19 10:30 am ( -earliest available appointment) Kar Pinon MD [STAFF PHYSICIAN] - 03/17/19 1:00 pm (Saturday) Patient Instructions/Handouts: Acute Coronary Syndrome (DC), COPD (Chronic Obstructive Pulmonary Disease) (DC) Discharge Disposition: HOME SELF-CARE
--- NOTE | 2019-03-04 15:17 | EST ---
EXERCISE STRESS AGE: 53 SEX: M HT: 71" WT: 139 PROTOCOL: Persantine Cardiolite Stress Test HEART RATE REST: 87 BLOOD PRESSURE REST: 128/89 MAXIMUM HEART RATE ACHIEVED: 97 MAXIMUM BLOOD PRESSURE: 144/88 85% MPHR: 141 100% MPHR: 166 INDICATIONS: Chest pain. CLINICAL INFORMATION: Baseline EKG revealed sinus mechanism with poor R-wave progression over precordial leads. With percent administration, patient did not have any significant symptoms. Heart rate changed from 87-97 beats per minute, blood pressure changed from 128/89 to 144/86 88. EKG remained unremarkable and patient did not have any anginal symptoms of significance. By EKG criteria, this is an unremarkable Persantine stress test. The nuclear scan results which are more pertinent will be reported by the radiologist. ROMINA / GEORGINAN: [id number] /
== END 2019-03-03 16:05 | disposition home or self-care (01) ==
LOC: EC 09:41 → 3SCARD 12:51
PROVIDERS: ADMIT Hospitalist; ATTEND Hospitalist
DX: R07.89 Other chest pain (principal); J43.9 Emphysema, unspecified; I10 Essential (primary) hypertension; F41.9 Anxiety disorder, unspecified; K21.9 Gastro-esophageal reflux disease without esophagitis; H54.8 Legal blindness, as defined in USA; Z63.79 Other stressful life events affecting family and household; F17.210 Nicotine dependence, cigarettes, uncomplicated; E78.5 Hyperlipidemia, unspecified; G47.00 Insomnia, unspecified; K64.9 Unspecified hemorrhoids; R79.89 Other specified abnormal findings of blood chemistry; I27.21 Secondary pulmonary arterial hypertension; R61 Generalized hyperhidrosis; Z72.89 Other problems related to lifestyle; H91.92 Unspecified hearing loss, left ear; M89.49 Other hypertrophic osteoarthropathy, multiple sites; R42 Dizziness and giddiness; M19.042 Primary osteoarthritis, left hand; M19.041 Primary osteoarthritis, right hand; Z79.899 Other long term (current) drug therapy; Z87.11 Personal history of peptic ulcer disease; Z85.828 Personal history of other malignant neoplasm of skin; Z91.81 History of falling; Z87.81 Personal history of (healed) traumatic fracture; Z87.01 Personal history of pneumonia (recurrent); Z90.49 Acquired absence of other specified parts of digestive tract; Z80.0 Family history of malignant neoplasm of digestive organs; Z82.49 Family history of ischemic heart disease and other diseases of the circulatory system
CPT/HCPCS: 96376 ×2; 96372 ×2; 96375; 93005 ×2; 96374; 99285; 36415; 94640; 93017; 93306; 85379; 83880; 80061; 80053; 83690; 83735; 84484; 85025; 85610; 85730; 71046; 71275; 78452; G0378 ×2; A9500; J1250; J2270; J2920 ×2; J2930; J1650 ×2; J1245; Q9967